=== PATIENT | male | born 1995 | race Caucasian/White ===

== ENCOUNTER 2016-10-16 05:17 | Day surgery (SDC) | payer OTHER ==
[~2016-10-16] VITALS: Ht 182.9 cm; Wt 159.0 kg
[~2016-10-16 05:17] MED LIST: NAPROSYN500 MG PO
[2016-10-16 06:03] VITALS: BP 152/82
[2016-10-16 11:30] VITALS: BP 131/69
[2016-10-16 12:47] VITALS: BP 136/73
== END 2016-10-16 13:30 | disposition home or self-care (01) ==
LOC: SDC 05:17
DX: S83.511A Sprain of anterior cruciate ligament of right knee, initial encounter (principal); S83.241A Other tear of medial meniscus, current injury, right knee, initial encounter; W01.0XXA Fall on same level from slipping, tripping and stumbling without subsequent striking against object, initial encounter; Y93.61 Activity, american tackle football; Y92.321 Football field as the place of occurrence of the external cause; Z82.49 Family history of ischemic heart disease and other diseases of the circulatory system
CPT/HCPCS: C1713; J0131; J0690; J1100; J1170; J2250; J2405; J2710; J2795; J3010; J7120